=== PATIENT | female | born 1990 | race Caucasian/White ===

== ENCOUNTER 2017-09-28 21:25 | Inpatient (IN) | payer OTHER ==
[~2017-09-28] VITALS: Ht 165.1 cm; Wt 81.8 kg
[2017-09-28 21:35] VITALS: BP 163/79
[2017-09-28 22:15] LABS: URINE AMPHETAMINES < 1000 (1000ng/ml); URINE BARBITURATES < 200 (200ng/ml); URINE BENZODIAZEPINES < 200 (200ng/ml); URINE CANNABINOIDS (THC) > 50 (50ng/ml); URINE COCAINE > 300 (300ng/ml); URINE METHADONE < 300 (300ng/ml); URINE OPIATES > 300 (300ng/ml); URINE PHENCYCLIDINE < 25 (25ng/ml)
[2017-09-28 23:00] VITALS: BP 116/75
--- NOTE | 2017-09-28 23:00 | NUR ---
27 year old FEMALE admitted to room # 405 for stabilization. Reports an addiction to HEROIN last used 24 hours prior to admission. Compliant with admission procedure. Patient denies any anxiety, but is unable to sit still, taps toes to floor continuously, looks about room, unable to focus eyes on nurse during interview. See assessment forms for additional information about patient status.
--- NOTE | 2017-09-29 00:15 | NUR ---
DR. KARTHIK DOLL AWARE THAT PATIENT HAS BEEN ADMITTED AND DENIES ANY HOME MEDICATIONS.
[2017-09-29 00:48] LABS: BASO % 0.1 % (0.0-1.0); EOS % 0.1 % (1.0-4.0); HEMATOCRIT 41.2 % (37.0-47.0); HEMOGLOBIN 13.4 g/dl (12.0-16.0); LYMPH # 2.5 10*3/uL (1.3-4.4); LYMPH % 35.6 % (27.0-41.0); MEAN CELL VOLUME 91.6 fl (81.0-99.0); MEAN CORPUSCULAR HGB 29.8 pg (27.0-31.0); MEAN CORPUSCULAR HGB CONC 32.5 g/dl (33.0-37.0); MEAN PLATELET VOLUME 9.8 fl (9.6-12.3); MONO # 0.6 10*3/uL (0.1-1.0); MONO % 7.9 % (3.0-9.0); NEUT # 3.9 10*3/uL (2.3-7.9); NEUT % 56.2 % (47.0-73.0); PLATELET COUNT AUTOMATED 177 10*3/uL (130-400); RED CELL DISTRI WIDTH 14.1 % (0-14.5)
[2017-09-29 01:04] LABS: ALBUMIN 3.7 gm/dl (3.1-4.5); ALKALINE PHOSPHATASE 60 U/L (45-117); BUN 8 mg/dl (7-24); CHLORIDE 108 mmol/L (98-107); CREATININE 0.59 mg/dL (0.55-1.02); POTASSIUM 4.1 mmol/L (3.5-5.1); SGOT/AST 52 IU/L (3-35); SGPT/ALT 96 U/L (12-78); SODIUM 141 mmol/L (136-145); TOTAL PROTEIN 6.9 gm/dL (6.4-8.2)
[2017-09-29 04:00] VITALS: BP 137/85
[2017-09-29 08:00] VITALS: BP 142/80
--- NOTE | 2017-09-29 08:07 | NUR ---
Patient reports the following symptoms of withdrawal: body aches, leg pain, anxiety, restlessness. Patient given scheduled/PRN medication to control withdrawal symptoms. Close observation will be maintained. Pt is throwing herself about the bed, won't answer most assessment questions. Is not specific regarding withdrawal symptoms. call light system reinforced for assistance. see shift assessment.
--- NOTE | 2017-09-29 09:58 | NUR ---
pt is uncooperative with staff, barely awakens for am meds. declines lovenox once she agreeded to take it. refuses to answer when questioned if prior administrated meds have been effective. pt states "stop waking me up!"
--- NOTE | 2017-09-29 10:00 | NUR ---
DR SNOW IN TO SEE PT & IS AWARE OF PTS UNCOOPERATIVE BEHAVIOR.
--- NOTE | 2017-09-29 10:47 | NUR ---
LATE ENTRY--PT REFUSES TO PERMIT STAFF TO VIEW HER LOWER PORTION OF HER BODY. UNSURE IF PT HAS TRACK EDUARDO ANYWHERE OTHER THAN HER ARMS BILATERALLY. THESE SITES APPEAR FREE FROM REDNESS OR INFLAMMATION.
--- NOTE | 2017-09-29 14:19 | NUR ---
ROUTINELY SCHEDULED SUBUTEX PER ORDERS. NO OBVIOUS CHANGES NOTED THIS SHIFT.
--- NOTE | 2017-09-29 15:28 | NUR ---
Shift chart check completed.24 HR chart check completed. Patient is ambulatory in the halls, has been on the phone at the desk,crying.
--- NOTE | 2017-09-29 15:45 | NUR ---
D/C PLANNING: PATIENT WNAST TO TO OUTPATIENT TREATMENT. PATIENT WANTS TO DO SUBOXONE MEDICATION-ASSISTED TREAMENT AT [facility] OR [facility]. Alexa SOMERS COORDINATOR
[2017-09-29 16:00] VITALS: BP 155/95
--- NOTE | 2017-09-29 16:23 | NUR ---
ON ASSESSMENT PATIENT IS TREMULOUS,DIOPHORETIC, AND CRYING. MEDICATED WITH ROBAXIN, BENTYL AND VISTARIL BY MOUTH. ENCOURAGED TO POSSIBLY TAKE A WARM SHOWER TO HELP HER FEEL BETTER. SHE CLAIMS TO BE "STARTING MY PERIOD". REASSURANCES GIVEN AND QUESTIONED ABOUT PREVIOUS PROGRAMS. SHE SAID "I WAS HERE BEFORE BUT LEFT THE FIRST DAY". SEE ALL APPROPRIATE INTERVENTIONS.
--- NOTE | 2017-09-29 17:52 | NUR ---
PT IS SLEEPING VERY SOUNDLY, CURLED UP ON HER SIDE. RESPIRATIONS UNLABORED. SKIN IS WARM AND DRY. HER FACE IS RELAXED.
--- NOTE | 2017-09-29 18:06 | NUR ---
A VISITOR HAS ARRIVED, PT AWAKE. NO VOICED COMPLAINTS.
[2017-09-29 20:00] VITALS: BP 136/78
--- NOTE | 2017-09-29 20:00 | NUR ---
LAB RESULTS AND ORDERS REVIEWED
--- NOTE | 2017-09-29 22:40 | NUR ---
PATIENT NOT IN HER ROOM DURING ROUNDING AT THIS TIME. ALL OF PATIETNS BELONGINGS ARE GONE. CALLED AND INFOMRED DR. HSU AND MOHAMUD ABARCA RN CLINICAL INFORMATICS SPEC.
[2017-09-30 06:10] LABS: HEPATITIS B SURFACE AG Negative (Negative)
[2017-09-30 10:21] LABS: HEPATITIS C VIRUS ANTIBODY >11.0 s/co (0.0-0.9)
== END 2017-09-29 22:40 | disposition left against medical advice (07) | DRG 894 ==
LOC: ED 21:25 → EDHOLD 22:05 → 4E 22:05
PROVIDERS: Internal Medicine; Physician Assistant; ADMIT Internal Medicine
DX: F11.23 Opioid dependence with withdrawal (principal); E87.8 Other disorders of electrolyte and fluid balance, not elsewhere classified; F32.9 Major depressive disorder, single episode, unspecified; F41.9 Anxiety disorder, unspecified; G25.81 Restless legs syndrome; R74.0 Nonspecific elevation of levels of transaminase and lactic acid dehydrogenase [LDH]; K21.9 Gastro-esophageal reflux disease without esophagitis; F14.10 Cocaine abuse, uncomplicated; F12.10 Cannabis abuse, uncomplicated; Z53.21 Procedure and treatment not carried out due to patient leaving prior to being seen by health care provider; E66.09 Other obesity due to excess calories; Z79.899 Other long term (current) drug therapy; Z71.6 Tobacco abuse counseling; Z98.51 Tubal ligation status; Z68.33 Body mass index [BMI] 33.0-33.9, adult